=== PATIENT | female | born 1980 | race African-American/Black ===

== ENCOUNTER → 2019-12-07 | Outpatient (CLI) | payer OTHER ==
--- NOTE | 2019-12-11 11:56 | SLEEPHOME ---
DATE OF PROCEDURE: 12/07/2019 ORDERED BY: ROSE Canela full Diagnostic home sleep testing was performed due to concern for the obstructive sleep apnea syndrome in this patient with a history of excessive somnolence and snoring. For testing a nocturnal T3 respiratory monitoring device was used. Continuous record was made of pulse oxygen saturation airflow, chest, abdominal strain and body position. 9 hours and 59 minutes of data were reviewed. There were 6 hours and 43 minutes marked as time in bed. During the interval marked time in bed there were only 16 respiratory events identified of 10 seconds in duration or greater for respiratory event index of 2.4. Snoring was noted over the entire study. Baseline pulse rate 69, pulse rate ranged 51-116. Baseline saturation 96%. Saturations briefly dipped to 89%. Testing was performed in both supine and non-supine positions. IMPRESSION: Normal diagnostic home sleep test with snoring.
== END ==
LOC: M SLEEP HO 11:39
PROVIDERS: ATTEND Nurse Practitioner Family
DX: R06.83 Snoring (principal)